=== PATIENT | female | born 1985 | race Caucasian/White ===

== ENCOUNTER 2018-10-11 10:25 | Emergency (ER) | payer MEDICAID ==
[~2018-10-11] VITALS: Ht 160 cm; Wt 81.6 kg
[~2018-10-11 10:25] MED LIST: ALBU0.0912 INH
--- NOTE | 2018-10-11 10:27 | NUR ---
PATIENT BIB [facility] FIRE TO BED 1 AT THIS TIME.
[2018-10-11 10:33] VITALS: BP 123/85
--- NOTE | 2018-10-11 10:49 | NUR ---
33F BIBA C/O SOB X 1 DAY. USED ALBUTEROL INH (HOME MED) WITHOUT RELIEF. BROUGHT IN BY BLS WHO STATES PT WAS SATURATING 92% RA, RECEIVED ALBUTEROL TX X2, SATURATION INCREASED TO 96% RA. NO S/S ACUTE DISTRESS NOW. INTERMITTENT WHEEZING B/L LUNGS. STATES COUGH, PRODUCTIVE 2 DAYS AGO, MILD CONGESTION. ALSO C/O CONSTANT 5/10 PAIN UNDER LEFT BREAST. PMHX- ASTHMA, COPD MEDS- ALBUTEROL INH ALL- LEVAQUIN
[2018-10-11] MEDS ORDERED: predniSONE 20 MG TAB PO ONE (11:20)
[2018-10-11] MEDS ORDERED: ALBUTEROL 0.083% 2.5 MG/3 ML NEBU INH ONE ×2 (11:20→12:30)
[2018-10-11] MEDS ORDERED: IPRATROPIUM 0.02% 0.5 MG/2.5 ML NEBU INH ONE (11:20)
--- NOTE | 2018-10-11 11:33 | NUR ---
PO MEDS GIVEN-NADR AT THIS TIME. RT AT BEDSIDE HHN TX GIVEN.
--- NOTE | 2018-10-11 11:47 | NUR ---
RT AT BEDSIDE.
--- NOTE | 2018-10-11 11:55 | NUR ---
PT SATURATING 94-95% RA NOW. NO S/S RESPIRATORY DISTRESS.
--- NOTE | 2018-10-11 13:22 | NUR ---
Patient discharged with v/s stable. Written and verbal after care instructions given and explained. Patient alert, oriented and verbalized understanding of instructions. Ambulatory with steady gait. All questions addressed prior to discharge. ID band removed. Patient advised to follow up with PMD.NO Rx PROAIR HFA, PREDNISONE given. Patient educated on indication of medication including possible reaction and side effects. Opportunity to ask questions provided and answered.
[2018-10-11 13:34] VITALS: BP 120/59
== END 2018-10-11 13:22 | disposition home or self-care (01) ==
LOC: MED 10:25
DX: J45.901 Unspecified asthma with (acute) exacerbation (principal); F17.200 Nicotine dependence, unspecified, uncomplicated; I10 Essential (primary) hypertension; Z98.890 Other specified postprocedural states; Z79.899 Other long term (current) drug therapy; Z88.1 Allergy status to other antibiotic agents
CPT/HCPCS: 81025; 94640; 94760; 99284; J7512; J7613; J7644

== ENCOUNTER 2018-10-22 19:53 | Inpatient (IN) | payer MEDICAID ==
[~2018-10-22] VITALS: Ht 157.5 cm; Wt 83.9 kg
[2018-10-22] MEDS: NACL 0.9% 1,000 ML IV SCH (01:20)
[2018-10-22 20:10] VITALS: BP 138/73
[2018-10-22] MEDS ORDERED: MAG SULF 2000 MG/WATER PREMIX 50 ML IV ONE (20:24)
[2018-10-22] MEDS ORDERED: NACL 0.9% 1,000 ML IV ONE (20:24)
[2018-10-22] MEDS ORDERED: methylPREDNISolone SS 125 MG in WATER STERILE 2 ML IV ONE (20:24)
[2018-10-22] MEDS ORDERED: ALBUTEROL 0.083% 2.5 MG/3 ML NEBU INH ONE (20:24)
[2018-10-22] MEDS ORDERED: AZITHROMYCIN 500 MG in DEXTROSE 5% 250 ML IV ONE (22:10)
[2018-10-22] MEDS ORDERED: NACL 0.9% 1,600 ML IV ONE (22:10)
[2018-10-22] MEDS ORDERED: cefTRIAXone 1,000 MG VIAL ONE (22:26)
[2018-10-22] MEDS ORDERED: HYDROcodone/APAP 7.5/325 MG 1 TAB PO PRN (23:00)
[2018-10-22] MEDS ORDERED: FAMOTIDINE 20 MG/2 ML VIAL IV PRN (23:00)
[2018-10-22] MEDS ORDERED: ACETAMINOPHEN 325 MG TAB PO PRN (23:00)
[2018-10-22] MEDS ORDERED: LORazepam 2 MG/ML VIAL IM/IVP PRN (23:00)
[2018-10-22] MEDS ORDERED: DOCUSATE SODIUM 100 MG GELCAP PO PRN (23:00)
[2018-10-22] MEDS ORDERED: ONDANSETRON 4 MG/2 ML VIAL IM/IVP PRN (23:00)
[2018-10-22 23:16] LABS: HEMATOCRIT 40.2 % (36-48); HEMOGLOBIN 13.5 g/dL (12.0-16.0); MEAN CORPUSCULAR HEMOGLOBIN 30 pg (27-31); MEAN CORPUSCULAR HGB CONC 34 g/dL (33-37); MEAN CORPUSCULAR VOLUME 90.3 fL (80-94); PLATELET COUNT (AUTO) 308 K/uL (140-450); RED BLOOD CELL COUNT(AUTO) 4.45 MIL/uL (4.20-5.40); WHITE BLOOD COUNT (AUTO) 15.4 K/uL (4.8-10.8)
[2018-10-22 23:26] LABS: APPEARANCE,URINE CLEAR (CLEAR); BILIRUBIN,URINE NEGATIVE (NEGATIVE); BLOOD, URINE NEGATIVE (NEGATIVE); COLOR,URINE YELLOW (YELLOW); LEUKOCYTE ESTERASE ,URINE 1+ (NEGATIVE); NITRITE, URINE NEGATIVE (NEGATIVE); PH,URINE 6.5 (5.0-9.0); UGLUCOSE NEGATIVE (NEGATIVE)
[2018-10-22 23:31] LABS: BARBITURATE, URINE NEG. ng/ml (NEG <=200); BENZODIAZEPINE, URINE NEG. ng/mL (NEG <=200); CANNABINOID, URINE NEG. ng/mL (NEG <=50); COCAINE, URINE NEG. ng/mL (NEG <=300); OPIATE, URINE NEG. ng/mL (NEG <=2000); PHENCYCLIDINE SCREEN,URINE NEG. ng/mL (NEG <=25)
[2018-10-22 23:35] LABS: EOSINOPHILS % (MANUAL) 3 % (0-4); LYMPHOCYTES % (MANUAL) 4 % (20-46); METAMYELOCYTES % 1 % (0-0); MONOCYTES % (MANUAL) 2 % (5-12)
[2018-10-22 23:36] LABS: RBC,URINE 0-5 /HPF (0-5); TRICHOMONAS,URINE Few /HPF (None Seen)
[2018-10-22] MEDS ORDERED: AZITHROMYCIN 500 MG INJ VIAL IV ONE (23:42)
[2018-10-22 23:44] LABS: AMYLASE 38 U/L (25-115); FREE T4 (FREE THYROXINE) 0.93 ng/dL (0.76-1.46); HDL CHOLESTEROL 45 mg/dL (40-60); LDL (CALC) 70 mg/dL (60-100); LIPASE 131 U/L (73-393); THYROID STIMULATING HORMONE 0.46 uIU/mL (0.34-3.74); TRIGLYCERIDES 112 mg/dL (30-150)
[2018-10-22 23:45] VITALS: BP 127/71
[2018-10-22 23:53] LABS: PROTHROMBIN TIME 10.5 secs (10.8-13.4)
[2018-10-23 00:11] LABS: ANION GAP 15.2 (8-16); CARBON DIOXIDE 22.5 mmol/L (21-32); CREATININE 0.7 mg/dL (0.6-1.3); POTASSIUM 3.7 mmol/L (3.5-5.1); TOTAL BILIRUBIN 0.3 mg/dL (0.0-1.0)
[2018-10-23] MEDS: ALBUTEROL SULFATE/IPRATROPIU 3 ML SOL IH PRN ×3 (01:20→14:19)
[2018-10-23] MEDS ORDERED: ALBUTEROL SULFATE/IPRATROPIU 3 ML SOL IH ONE (01:20)
[2018-10-23] MEDS ORDERED: BUDESONIDE 0.5 MG/2 ML NEBU INH SCH (01:30)
[2018-10-23] MEDS ORDERED: metroNIDAZOLE 500 MG TAB PO SCH (04:00)
[2018-10-23] MEDS ORDERED: SODIUM PHOS / POTASSIUM PHOS 1 PKT PDR PO SCH (04:30)
[2018-10-23] MEDS: methylPREDNISolone SS 125 MG/2 ML VIAL IVP SCH (04:36)
[2018-10-23] MEDS: ALBUTEROL SULFATE/IPRATROPIU 3 ML SOL IH SCH ×4 (06:00→19:37)
[2018-10-23] MEDS: BUDESONIDE 0.5 MG/2 ML NEBU INH SCH ×2 (06:56→19:37)
[2018-10-23 08:50] LABS: HEMATOCRIT 42.4 % (36-48); HEMOGLOBIN 14.3 g/dL (12.0-16.0); MEAN CORPUSCULAR HEMOGLOBIN 31 pg (27-31); MEAN CORPUSCULAR HGB CONC 34 g/dL (33-37); MEAN CORPUSCULAR VOLUME 90.8 fL (80-94); PLATELET COUNT (AUTO) 334 K/uL (140-450); RED BLOOD CELL COUNT(AUTO) 4.67 MIL/uL (4.20-5.40); RED CELL DISTRIBUTION WIDTH 14.7 % (11.6-13.7)
[2018-10-23] MEDS: NACL 0.9% 1,000 ML IV SCH (08:59)
[2018-10-23] MEDS ORDERED: WATER STERILE IM SCH (09:00)
[2018-10-23] MEDS ORDERED: METHYLPREDNISOLONE SS IM SCH (09:00)
[2018-10-23 09:04] VITALS: BP 132/90
[2018-10-23] MEDS: LACTOBACILLUS RHAMNOSUS GG 1 EACH CAP PO SCH ×2 (09:21→21:59)
[2018-10-23 09:36] LABS: BASOPHILS % (MANUAL) 0 % (0-2); EOSINOPHILS % (MANUAL) 0 % (0-4); LYMPHOCYTES % (MANUAL) 4 % (20-46); MONOCYTES % (MANUAL) 3 % (5-12)
[2018-10-23 10:44] LABS: ANION GAP 16.5 (8-16); CARBON DIOXIDE 21.5 mmol/L (21-32); CREATININE 0.8 mg/dL (0.6-1.3)
[2018-10-23 10:48] LABS: MAGNESIUM 1.5 mg/dL (1.8-2.4); PHOSPHORUS 1.8 mg/dL (2.5-4.9)
[2018-10-23 12:47] VITALS: BP 124/63
[2018-10-23] MEDS ORDERED: MAG SULF 2000 MG/WATER PREMIX 50 ML IV SCH (15:00)
[2018-10-23 16:21] VITALS: BP 136/76
[2018-10-23 20:00] VITALS: BP 139/77
[2018-10-23] MEDS: AZITHROMYCIN 250 MG in DEXTROSE 5% 250 ML IV SCH (21:58)
[2018-10-23] MEDS: KETOROLAC 30 MG/ML VIAL IM PRN (22:50)
[2018-10-24] MEDS: NACL 0.9% 1,000 ML IV SCH ×2 (03:48→22:25)
[2018-10-24] MEDS: methylPREDNISolone SS 125 MG/2 ML VIAL IVP SCH (03:48)
[2018-10-24] MEDS: KETOROLAC 30 MG/ML VIAL IM PRN (08:42)
[2018-10-24] MEDS: ASPIRIN 81 MG TAB.CHEW PO SCH (08:42)
[2018-10-24] MEDS: LACTOBACILLUS RHAMNOSUS GG 1 EACH CAP PO SCH ×2 (08:42→21:15)
[2018-10-24] MEDS: BUDESONIDE 0.5 MG/2 ML NEBU INH SCH ×2 (09:28→19:52)
[2018-10-24 10:02] LABS: HEMATOCRIT 39.6 % (36-48); HEMOGLOBIN 13.2 g/dL (12.0-16.0); MEAN CORPUSCULAR HEMOGLOBIN 30 pg (27-31); MEAN CORPUSCULAR HGB CONC 33 g/dL (33-37); MEAN CORPUSCULAR VOLUME 91.5 fL (80-94); PLATELET COUNT (AUTO) 323 K/uL (140-450); RED BLOOD CELL COUNT(AUTO) 4.33 MIL/uL (4.20-5.40); WHITE BLOOD COUNT (AUTO) 24.7 K/uL (4.8-10.8)
[2018-10-24 10:52] LABS: ANION GAP 14.5 (8-16); CARBON DIOXIDE 24.2 mmol/L (21-32); CREATININE 0.7 mg/dL (0.6-1.3); POTASSIUM 3.7 mmol/L (3.5-5.1)
[2018-10-24 10:56] VITALS: BP 137/86
[2018-10-24 10:56] LABS: BASOPHILS % (MANUAL) 0 % (0-2); EOSINOPHILS % (MANUAL) 1 % (0-4); LYMPHOCYTES % (MANUAL) 4 % (20-46); MAGNESIUM 1.1 mg/dL (1.8-2.4); MONOCYTES % (MANUAL) 2 % (5-12); PHOSPHORUS 2.1 mg/dL (2.5-4.9)
[2018-10-24] MEDS: ALBUTEROL SULFATE/IPRATROPIU 3 ML SOL IH SCH ×2 (12:38→18:00)
[2018-10-24 18:06] VITALS: BP 128/82
[2018-10-24 20:00] VITALS: BP 145/85
[2018-10-24] MEDS ORDERED: MAGNESIUM OXIDE 400 MG TAB PO ONE (20:05)
[2018-10-24] MEDS ORDERED: AZITHROMYCIN 250 MG TAB PO SCH (21:00)
[2018-10-24] MEDS: AZITHROMYCIN 250 MG in DEXTROSE 5% 250 ML IV SCH (21:00)
[2018-10-24] MEDS: SODIUM PHOS / POTASSIUM PHOS 1 PKT PDR PO SCH (21:15)
[2018-10-24] MEDS: MAG SULF 2000 MG/WATER PREMIX 50 ML IV SCH ×2 (21:16→21:18)
[2018-10-24] MEDS ORDERED: cefTRIAXone 1,000 MG VIAL IM SCH (22:00)
[2018-10-24] MEDS ORDERED: LIDOCAINE MPF 1% 5mL VIAL INJ SCH (22:00)
[2018-10-24] MEDS ORDERED: LIDOCAINE 1% 500 MG/50 ML VIAL ONE (22:04)
[2018-10-25] VITALS: BP 125/83
[2018-10-25 04:00] VITALS: BP 140/96
[2018-10-25] MEDS: methylPREDNISolone SS 125 MG/2 ML VIAL IVP SCH (04:30)
[2018-10-25] MEDS: ALBUTEROL SULFATE/IPRATROPIU 3 ML SOL IH SCH ×3 (06:17→19:45)
[2018-10-25] MEDS: BUDESONIDE 0.5 MG/2 ML NEBU INH SCH ×2 (06:26→19:45)
[2018-10-25 08:00] VITALS: BP 125/67
[2018-10-25 08:03] LABS: ANION GAP 8.5 (8-16); CARBON DIOXIDE 32.3 mmol/L (21-32); CREATININE 0.6 mg/dL (0.6-1.3); POTASSIUM 3.8 mmol/L (3.5-5.1)
[2018-10-25 08:18] LABS: MAGNESIUM 1.1 mg/dL (1.8-2.4); PHOSPHORUS 3.8 mg/dL (2.5-4.9)
[2018-10-25 08:44] LABS: BASOPHILS # (AUTO) 0.1 K/uL (0.00-0.22); BASOPHILS % (AUTO) 0.3 % (0.0-2.0); EOSINOPHILS % (AUTO) 0.2 % (0.0-4.0); HEMATOCRIT 37.2 % (36-48); HEMOGLOBIN 12.4 g/dL (12.0-16.0); LYMPHOCYTES # (AUTO) 3.2 K/uL (2.5-16.5); LYMPHOCYTES % (AUTO) 17.1 % (20.5-51.1); MEAN CORPUSCULAR HEMOGLOBIN 31 pg (27-31); MEAN CORPUSCULAR HGB CONC 34 g/dL (33-37); MEAN CORPUSCULAR VOLUME 91.8 fL (80-94); MONOCYTES # (AUTO) 1.2 K/uL (0.8-1.0); MONOCYTES % (AUTO) 6.7 % (1.7-9.3); NEUTROPHILS # (AUTO) 14.1 K/uL (1.8-7.7); NEUTROPHILS % (AUTO) 75.7 % (42.2-75.2); PLATELET COUNT (AUTO) 312 K/uL (140-450); RED BLOOD CELL COUNT(AUTO) 4.05 MIL/uL (4.20-5.40); RED CELL DISTRIBUTION WIDTH 14.8 % (11.6-13.7); WHITE BLOOD COUNT (AUTO) 18.6 K/uL (4.8-10.8)
[2018-10-25] MEDS: ASPIRIN 81 MG TAB.CHEW PO SCH (09:22)
[2018-10-25] MEDS: LACTOBACILLUS RHAMNOSUS GG 1 EACH CAP PO SCH ×2 (09:22→21:37)
[2018-10-25] MEDS: SODIUM PHOS / POTASSIUM PHOS 1 PKT PDR PO SCH ×2 (09:23→21:37)
[2018-10-25] MEDS: metroNIDAZOLE 500 MG TAB PO SCH ×2 (09:23→21:36)
[2018-10-25] MEDS ORDERED: cefTRIAXone 1,000 MG in LIDOCAINE MPF 1% - 5 mL VIAL 2.1 ML IM SCH (10:00)
[2018-10-25] MEDS ORDERED: MAG SULF 2000 MG/WATER PREMIX 100 ML IV SCH (10:15)
[2018-10-25] MEDS: ALBUTEROL SULFATE/IPRATROPIU 3 ML SOL IH PRN (15:31)
[2018-10-25] MEDS: BENZONATATE 100 MG CAPLF PO PRN ×2 (16:35→23:04)
[2018-10-25 20:00] VITALS: BP 131/70
[2018-10-25] MEDS: NACL 0.9% 1,000 ML IV SCH (20:03)
[2018-10-25] MEDS: AZITHROMYCIN 250 MG in DEXTROSE 5% 250 ML IV SCH (22:27)
[2018-10-26] MEDS: methylPREDNISolone SS 125 MG/2 ML VIAL IVP SCH (05:15)
[2018-10-26] MEDS: ALBUTEROL SULFATE/IPRATROPIU 3 ML SOL IH SCH ×3 (07:00→19:32)
[2018-10-26] MEDS: BUDESONIDE 0.5 MG/2 ML NEBU INH SCH ×2 (07:00→19:32)
[2018-10-26 07:33] LABS: BASOPHILS # (AUTO) 0.1 K/uL (0.00-0.22); BASOPHILS % (AUTO) 0.4 % (0.0-2.0); EOSINOPHILS # (AUTO) 0.6 K/uL (0-0.4); EOSINOPHILS % (AUTO) 4.4 % (0.0-4.0); HEMATOCRIT 40.2 % (36-48); HEMOGLOBIN 13.3 g/dL (12.0-16.0); LYMPHOCYTES # (AUTO) 2.6 K/uL (2.5-16.5); LYMPHOCYTES % (AUTO) 18.5 % (20.5-51.1); MEAN CORPUSCULAR HEMOGLOBIN 30 pg (27-31); MEAN CORPUSCULAR HGB CONC 33 g/dL (33-37); MEAN CORPUSCULAR VOLUME 91.8 fL (80-94); MONOCYTES # (AUTO) 1.2 K/uL (0.8-1.0); MONOCYTES % (AUTO) 8.4 % (1.7-9.3); NEUTROPHILS # (AUTO) 9.6 K/uL (1.8-7.7); NEUTROPHILS % (AUTO) 68.3 % (42.2-75.2); PLATELET COUNT (AUTO) 310 K/uL (140-450); RED BLOOD CELL COUNT(AUTO) 4.38 MIL/uL (4.20-5.40); RED CELL DISTRIBUTION WIDTH 14.8 % (11.6-13.7)
[2018-10-26 07:38] LABS: ANION GAP 9.3 (8-16); CARBON DIOXIDE 30.6 mmol/L (21-32); CREATININE 0.6 mg/dL (0.6-1.3); POTASSIUM 3.9 mmol/L (3.5-5.1)
[2018-10-26] MEDS: BENZONATATE 100 MG CAPLF PO PRN (07:42)
[2018-10-26 07:46] LABS: MAGNESIUM 1.3 mg/dL (1.8-2.4); PHOSPHORUS 3.5 mg/dL (2.5-4.9)
[2018-10-26 08:00] VITALS: BP 100/55
[2018-10-26] MEDS: ALBUTEROL SULFATE/IPRATROPIU 3 ML SOL IH PRN ×2 (08:12→17:44)
[2018-10-26] MEDS ORDERED: MAGNESIUM OXIDE 400 MG TAB PO SCH (09:00)
[2018-10-26] MEDS ORDERED: MAG SULF 2000 MG/WATER PREMIX 100 ML IV SCH (09:00)
[2018-10-26] MEDS: ASPIRIN 81 MG TAB.CHEW PO SCH (09:44)
[2018-10-26] MEDS: LACTOBACILLUS RHAMNOSUS GG 1 EACH CAP PO SCH ×2 (09:44→20:26)
[2018-10-26] MEDS: NACL 0.9% 1,000 ML IV SCH (20:03)
[2018-10-26] MEDS: AZITHROMYCIN 250 MG in DEXTROSE 5% 250 ML IV SCH (20:26)
[2018-10-27] MEDS: methylPREDNISolone SS 125 MG/2 ML VIAL IVP SCH (04:45)
[2018-10-27] MEDS: ALBUTEROL SULFATE/IPRATROPIU 3 ML SOL IH SCH (05:41)
[2018-10-27 07:03] LABS: HEMATOCRIT 41.8 % (36-48); MEAN CORPUSCULAR HEMOGLOBIN 31 pg (27-31); MEAN CORPUSCULAR HGB CONC 34 g/dL (33-37); MEAN CORPUSCULAR VOLUME 91.3 fL (80-94); PLATELET COUNT (AUTO) 312 K/uL (140-450); RED BLOOD CELL COUNT(AUTO) 4.57 MIL/uL (4.20-5.40); RED CELL DISTRIBUTION WIDTH 14.7 % (11.6-13.7)
[2018-10-27 07:22] LABS: WHITE BLOOD COUNT (AUTO) 22.4 K/uL (4.8-10.8)
[2018-10-27 07:30] LABS: ANION GAP 13.9 (8-16); CARBON DIOXIDE 26.7 mmol/L (21-32); CREATININE 0.7 mg/dL (0.6-1.3); POTASSIUM 3.6 mmol/L (3.5-5.1)
[2018-10-27 07:43] LABS: MAGNESIUM 1.5 mg/dL (1.8-2.4); PHOSPHORUS 3.5 mg/dL (2.5-4.9)
[2018-10-27] MEDS: BUDESONIDE 0.5 MG/2 ML NEBU INH SCH (07:53)
[2018-10-27] MEDS: ALBUTEROL SULFATE/IPRATROPIU 3 ML SOL IH PRN (07:53)
[2018-10-27 08:00] VITALS: BP 132/83
[2018-10-27] MEDS ORDERED: diphenhydrAMINE 50 MG/ML VIAL IVP SCH (08:25)
[2018-10-27] MEDS ORDERED: MAGNESIUM OXIDE 400 MG TAB PO SCH (08:27)
[2018-10-27] MEDS ORDERED: MAG SULF 2000 MG/WATER PREMIX 100 ML IV SCH (09:00)
[2018-10-27 09:11] LABS: METAMYELOCYTES % 1 % (0-0); MYELOCYTES % 1 % (0-0)
[2018-10-27 09:12] LABS: EOSINOPHILS % (MANUAL) 1 % (0-4); LYMPHOCYTES % (MANUAL) 15 % (20-46); MONOCYTES % (MANUAL) 5 % (5-12)
[2018-10-27] MEDS ORDERED: ALBU-118 IH (09:14)
[2018-10-27] MEDS ORDERED: AZIT250T3 PO (09:16)
[2018-10-27] MEDS ORDERED: AMOX-999 PO (09:16)
[2018-10-27] MEDS ORDERED: INUL1CTB PO (09:16)
[2018-10-27] MEDS ORDERED: METH4TAB3 PO (09:19)
[2018-10-27] MEDS ORDERED: LORazepam 2 MG/ML VIAL IVP SCH (09:19)
[2018-10-27] MEDS: BENZONATATE 100 MG CAPLF PO PRN (09:24)
[2018-10-27] MEDS: ASPIRIN 81 MG TAB.CHEW PO SCH (09:26)
[2018-10-27] MEDS: LACTOBACILLUS RHAMNOSUS GG 1 EACH CAP PO SCH (09:26)
[2018-10-27] MEDS ORDERED: MAGN200T12 PO (10:15)
[2018-10-27 15:21] LABS: CHLAMYDIA TRACHOMATIS AMP DNA Negative (Negative)
== END 2018-10-27 13:20 | disposition home or self-care (01) | DRG 140 ==
LOC: MED 19:53 → MTU 22:59
PROVIDERS: ADMIT General Practice; ATTEND General Practice
PROC: 02HV33Z Insertion of Infusion Device into Superior Vena Cava, Percutaneous Approach (ICD-10-PCS; principal; 2018-10-25)
PROC: B548ZZA Ultrasonography of Superior Vena Cava, Guidance (ICD-10-PCS; 2018-10-25)
DX: J44.0 Chronic obstructive pulmonary disease with (acute) lower respiratory infection (principal); J96.01 Acute respiratory failure with hypoxia; J18.9 Pneumonia, unspecified organism; E44.0 Moderate protein-calorie malnutrition; J45.901 Unspecified asthma with (acute) exacerbation; E83.39 Other disorders of phosphorus metabolism; E83.42 Hypomagnesemia; E83.51 Hypocalcemia; J44.1 Chronic obstructive pulmonary disease with (acute) exacerbation; F17.210 Nicotine dependence, cigarettes, uncomplicated; I10 Essential (primary) hypertension; F19.10 Other psychoactive substance abuse, uncomplicated; F12.90 Cannabis use, unspecified, uncomplicated; A59.01 Trichomonal vulvovaginitis; N39.0 Urinary tract infection, site not specified; Z68.33 Body mass index [BMI] 33.0-33.9, adult; Z98.51 Tubal ligation status; Z88.1 Allergy status to other antibiotic agents; Z91.14 Patient's other noncompliance with medication regimen
CPT/HCPCS: 36415; 36600; 71045; 80048; 80053; 80305; 81001; 81025; 82040; 82140; 82150; 82803; 82948; 83036; 83605; 83690; 83735; 83880; 84100; 84439; 84443; 84484; 85025; 85379; 85610; 85730; 87081; 87086; 87205; 87491; 92610; 93005; 93970; 94640; 99285; C1751; G0482; J0456; J0696; J1200; J1644; J1885; J2001; J2060; J2930; J3475; J7030; J7060; J7613; J7620; J7626; Q0092

== ENCOUNTER 2018-11-15 10:40 | Outpatient (CLI) | payer MEDICAID ==
[~2018-11-15 10:40] MED LIST changes: +ALBU-118 IH; +AMOX-999 PO; +AZIT250T3 PO; +INUL1CTB PO; +MAGN200T12 PO; +METH4TAB3 PO
== END 2018-11-15 20:11 | disposition home or self-care (01) ==
LOC: MRD 10:40
DX: J35.02 Chronic adenoiditis (principal)
CPT/HCPCS: 70360

== ENCOUNTER 2018-12-09 20:58 | Inpatient (IN) | payer MEDICAID ==
[~2018-12-09] VITALS: Ht 157.5 cm; Wt 93.0 kg
[2018-12-09] VITALS: BP 124/73
[2018-12-09 20:58] VITALS: BP 154/100
--- NOTE | 2018-12-09 21:00 | NUR ---
33 Y/O FEMALE BIB FIRE SQUAD #183 FROM HOME. REPORT RECEIVED FROM DATA WAREHOUSING SPECIALIST, STATES RECEIVING A CALL FROM PT COMPLAINING OF SOB. RECEIVED ALUBETEROL TREATMENT ON SCENE. ENROUTE TO ED, PT PLACED ON CPAP AND RECEIVED 0.5MG EPI. PT C/O TIGHTENING OF THROAT. HX OF ASTHMA, COPD, AND HTN. 20G IV ON RIGHT HAND PLACED BY PARAMEDICS. PT DENIES ANY CHEST PAIN. ERMD AWARE. WILL CONTINUE TO MONITOR.
[2018-12-09] MEDS ORDERED: ALBUTEROL 0.083% 2.5 MG/3 ML NEBU INH ONE ×2 (21:07→21:10)
[2018-12-09] MEDS ORDERED: methylPREDNISolone SS 125 MG/2 ML VIAL IVP ONE (21:10)
--- NOTE | 2018-12-09 21:16 | NUR ---
XRAY AT BEDSIDE
[2018-12-09 21:46] LABS: BASOPHILS # (AUTO) 0.1 K/uL (0.00-0.22); BASOPHILS % (AUTO) 1.2 % (0.0-2.0); EOSINOPHILS # (AUTO) 1.3 K/uL (0-0.4); EOSINOPHILS % (AUTO) 11.7 % (0.0-4.0); HEMATOCRIT 42.9 % (36-48); HEMOGLOBIN 14.2 g/dL (12.0-16.0); LYMPHOCYTES # (AUTO) 2.8 K/uL (2.5-16.5); LYMPHOCYTES % (AUTO) 25.5 % (20.5-51.1); MEAN CORPUSCULAR HEMOGLOBIN 30 pg (27-31); MEAN CORPUSCULAR HGB CONC 33 g/dL (33-37); MEAN CORPUSCULAR VOLUME 91.4 fL (80-94); MONOCYTES # (AUTO) 0.6 K/uL (0.8-1.0); MONOCYTES % (AUTO) 5.3 % (1.7-9.3); NEUTROPHILS # (AUTO) 6.2 K/uL (1.8-7.7); NEUTROPHILS % (AUTO) 56.3 % (42.2-75.2); PLATELET COUNT (AUTO) 432 K/uL (140-450); RED CELL DISTRIBUTION WIDTH 13.3 % (11.6-13.7)
--- NOTE | 2018-12-09 21:48 | NUR ---
PT OFF CONTINUOUS TX. MD WALLACE AT BEDSIDE. PT SAID SHE FEELS BETTER. PLACED PT ON 4 L NC. WILL CONTINUE TO MONITOR.
[2018-12-09] MEDS ORDERED: AZITHROMYCIN 500 MG in DEXTROSE 5% 250 ML IV ONE (22:00)
[2018-12-09 22:08] LABS: ANION GAP 12.2 (8-16); CARBON DIOXIDE 25.4 mmol/L (21-32); CREATININE 0.8 mg/dL (0.6-1.3); POTASSIUM 3.6 mmol/L (3.5-5.1)
[2018-12-09 22:13] LABS: ALBUMIN 3.5 g/dL (3.4-5.0); TOTAL BILIRUBIN 0.2 mg/dL (0.0-1.0)
[2018-12-09] MEDS ORDERED: AZITHROMYCIN 500 MG INJ VIAL IV ONE (22:15)
[2018-12-09] MEDS ORDERED: ONDANSETRON 4 MG/2 ML VIAL IVP PRN (22:15)
[2018-12-09] MEDS ORDERED: ACETAMINOPHEN 325 MG TAB PO PRN (22:15)
[2018-12-09] MEDS ORDERED: HYDROcodone/APAP 7.5/325 MG 1 TAB PO PRN (22:15)
--- NOTE | 2018-12-09 22:45 | NUR ---
Patient arrived in unit via ralbia, accompanied by two WILLOW WORKER's. Patient able to ambulate from gurney to bed without assistance; introduced self, updated board. Chief complaint of SOB for 1 day, diagnosis is Asthma exacerbation. No SOB or distress noted, on room air. IV site on right hand, 20 gauge, running IVF at 250mL/hr. Skin intact. Bed in the lowest position, call light within reach. Initial assessment done. Will continue to monitor.
[2018-12-09] MEDS ORDERED: FLUT1DSK2 IH (22:47)
[2018-12-09] MEDS ORDERED: AZITHROMYCIN 500 MG in DEXTROSE 5% 250 ML IV SCH (22:50)
[2018-12-09] MEDS ORDERED: MONTELUKAST SODIUM 10 MG TAB PO SCH (22:50)
--- NOTE | 2018-12-09 22:50 | NUR ---
PT ADMITTED TO TELE RM 107A. TRANSFERRED PT VIA [facility] WITH BALJINDER ALBRECHT, PT STABLE. REPORT GIVEN TO ADRIEN GARVEY. PT CARE TRANSFERRED TO RECEIVING RN.
[2018-12-09 23:17] LABS: MAGNESIUM 1.2 mg/dL (1.8-2.4)
[2018-12-10] VITALS: BP 124/73
--- NOTE | 2018-12-10 00:01 | NUR ---
Vitals taken, no distress noted.
[2018-12-10 00:13] LABS: FREE T4 (FREE THYROXINE) 0.84 ng/dL (0.76-1.46); PHOSPHORUS 4.2 mg/dL (2.5-4.9); THYROID STIMULATING HORMONE 2.75 uIU/mL (0.34-3.74)
[2018-12-10] MEDS ORDERED: MAG SULF 2000 MG/WATER PREMIX 100 ML IV ONE (01:00)
[2018-12-10] MEDS ORDERED: VARE1TAB PO (01:00)
--- NOTE | 2018-12-10 01:10 | NUR ---
PT REFUSED ABG. MD MIDDLETON AWARE.
[2018-12-10] MEDS ORDERED: cefTRIAXone 1,000 MG VIAL ONE (01:32)
--- NOTE | 2018-12-10 01:53 | NUR ---
Found patient IV dislodged when about to give IV Rocephin and IV Magnesium sulfate. Patient refused IV reinsertion; stated PICC line will be inserted this morning. Will notify Dr. Baeza about discovery.
[2018-12-10 02:45] LABS: CREATINE KINASE MB 1.1 ng/mL (0-3.6)
[2018-12-10 04:00] VITALS: BP 121/70
--- NOTE | 2018-12-10 04:40 | NUR ---
Vitals taken, no distress noted.
[2018-12-10] MEDS: methylPREDNISolone SS 125 MG/2 ML VIAL IVP SCH ×3 (05:00→21:47)
--- NOTE | 2018-12-10 06:10 | NUR ---
Vitals taken, due meds given. Will endorse to AM shift RN for continuity of care.
--- NOTE | 2018-12-10 07:37 | NUR ---
PT EATING AT THIS TIME WILL ADMINISTER BREATHING TX AT A LATER TIME. PT NOT IN ANY DISTRESS AT THIS TIME. WILL CONTINUE TO MONITOR.
[2018-12-10 07:44] VITALS: BP 126/71
[2018-12-10] MEDS: ALBUTEROL SULFATE/IPRATROPIU 3 ML SOL IH SCH ×3 (08:07→18:59)
--- NOTE | 2018-12-10 08:08 | NUR ---
PATIENT HAS BEEN SCREENED AND CATEGORIZED LOW NUTRITION RISK. PATIENT WILL BE SEEN WITHIN 7 DAYS OF ADMISSION. 12/16/[address]
[2018-12-10] MEDS: MAGNESIUM OXIDE 400 MG TAB PO SCH (08:35)
[2018-12-10] MEDS: LACTOBACILLUS RHAMNOSUS GG 1 EACH CAP PO SCH (08:35)
[2018-12-10] MEDS: FAMOTIDINE 20 MG TAB PO SCH ×2 (08:35→21:46)
[2018-12-10] MEDS: DOCUSATE SODIUM 100 MG GELCAP PO SCH ×2 (08:36→21:46)
[2018-12-10] MEDS: NICOTINE TRANSD SYS 7 MG/24 HR PATCH TD SCH (08:40)
[2018-12-10] MEDS: BENZONATATE 100 MG CAPLF PO PRN ×2 (08:47→21:52)
--- NOTE | 2018-12-10 08:51 | NUR ---
GAVE PT TESSALON PRN PER MD ORDER. PT STATES THAT SHE COUGHS WHEN SHE LAYS DOWN.
[2018-12-10] MEDS ORDERED: NON-FORMULARY ITEM (Varenicline Tartrate (Chantix) 1 TAB) PO SCH (09:00)
--- NOTE | 2018-12-10 10:00 | NUR ---
PICC LINE INSERTED BY PICC LINE MARE MUJICA IN RIGHT UPPER ARM. FLUSHES WELL, GOOD BLOOD RETURN. JAGDEEP MOURA PER MD ORDER. WILL CONTINUE TO MONITOR.
[2018-12-10] MEDS ORDERED: MAG SULF 2000 MG/WATER PREMIX 50 ML IV SCH (12:00)
[2018-12-10 12:39] VITALS: BP 117/62
--- NOTE | 2018-12-10 12:50 | NUR ---
PT COMPLAINS OF 10/10 CRAMPING OF RIGHT LEG. TOOK OUT NORCO BUT PT REFUSED TO TAKE NARCOTICS.
[2018-12-10] MEDS ORDERED: MAG SULF 2000 MG/WATER PREMIX 100 ML IV SCH (14:15)
[2018-12-10] MEDS: MONTELUKAST SODIUM 10 MG TAB PO SCH (16:26)
[2018-12-10 17:19] VITALS: BP 132/73
--- NOTE | 2018-12-10 19:12 | NUR ---
GAVE BED SIDE REPORT TO MARKET DEVELOPMENT DIRECTOR RN. PT STABLE.
--- NOTE | 2018-12-10 19:13 | NUR ---
Received endorsement from AM shift RN; patient A/Ox4, able to make needs known, ambulatory. Patient watching TV; introduced self, updated board. No SOB or distress noted, on O2 2LPM via nasal cannula. IV site on right upper arm PICC line, double lumen, saline locked. Skin intact. Bed in the lowest position, call light within reach. Initial assessment done. Will continue to monitor.
[2018-12-10 20:00] VITALS: BP 121/71
--- NOTE | 2018-12-10 21:35 | NUR ---
Patient changed to room 112A.
--- NOTE | 2018-12-10 21:50 | NUR ---
Due meds given, tolerated well.
[2018-12-10] MEDS: AZITHROMYCIN 500 MG in DEXTROSE 5% 250 ML IV SCH (23:20)
[2018-12-10] MEDS: ALBUTEROL SULFATE/IPRATROPIU 3 ML SOL IH PRN (23:28)
[2018-12-11] VITALS: BP 125/68
--- NOTE | 2018-12-11 00:15 | NUR ---
Vitals taken, no distress noted.
--- NOTE | 2018-12-11 01:02 | NUR ---
PATIENT PLACED ON CPAP MACHINE AT 5 CM AND FIO2 30%. PATIENTS SATS ARE 97%. NO SOB NOTED
--- NOTE | 2018-12-11 02:00 | NUR ---
PATIENT STABLE AND ALERT SP02 98 HR 88. PATIENT DID NOT WANT TO WEAR CPAP AND TOOK OFF THE MASK. PATIENT STATED SHE DID NOT FEEL COMFORTABLE WEARING THE CPAP AND WANTED TO SLEEP WITHOUT THE MACHINE AT THIS TIMETTTHISTEEDEDEDEDEDEDEDEDEDEDEDEDEDEDEDEDEDEDEDEDEDEDEDEDEDEDEDEDEDEDEDEDEDEDEDEDEDEDEDED EDEDEDEDEDEDEDEDEDEDEDEDEDEDEDEDEDEDEDEDEDEDEDEDEDEDEDEDEFFFFFFFFFFFFFFFFFFFFFFFFFFFFFFFFFFF FFFFFFFFFFFFFFFFFFFFFFFFFFFFFFFFFFFFFFFFFFFFFFFFFFFFFFFFFFFFFFFFFFFFFFFFFFFFFFFFFFFFFFFFFFFF FFFFFFFFFFFFFFFFFFFFFFFFFFFFFFFFFFFFFFFFFFFFFFFFFFFFFFFFFFFFFFFFFFFFFFFFFFFFFFFFFFFFFFFFFFFF FFFFFFFFFFFFFFFFFFFFFFFFFFFFFFFFFFFFFFFFFFFFFFFFFFFFFFFFFFFFFFFFFFFFFFFFFFFFFFFFFFFFFFFFFFFF FFFFFFFFFFFFFFFFFFFFFFFFFFFFFFFFFFFFFFFFFFFFFFFFFFFFFFFFFFFFFFFFFFFFFFFFFFFFFFFFFFFFFFFFFFFF FFFFFFFFFFFFFFFFFFFFFFFFFFFFFFFFFFFFFFFFFFFFFFFFFFFFFFFFFFFFFFFFFFFFFFFFFFFFFFFFFFFFFFFFFFFF FFFFFFFFFFFFFFFFFFFFFFFFFFFFFFFFFFFFFFFFFFFFFFFFFFFFFFFFFFFFFFFFFFFFFFFFFFFFFFFFFFFFFFFFFFFF FFFFFFFFFFFFFFFFFFFFFFFFFFFFFFFFFFFFFFFFFFFFFFFFFFFFFFFFFFFFFFFFFFFFFFFFFFFFFFFFFFFFFFFFFFFF FFFFFFFFFFFFFFFFFFFFFFFFFFFFFFFFFFFFFFFFFFFFFFFFFFFFFFFFFFFFFFFFFFFFFFFFFFFFFFFFFFFFFFFFFFFF FFFFFFFFFFFFFFFFFFFFFFFFFFFFFFFFFFFFFFFFFFFFFFFFFFFFFFFFFFFFFFFFFFFFFFFFFFFFFFFFFFFFFFFFFFFF FFFFFFFFFFFFFFFFFFFFFFFFFFFFFFFFFFFFFFFFFFFFFFFFFFFFFFFFFFFFFFFFFFFFFFFFFFFFFFFFFFFFFFFFFFFF FFFFFFFFFFFFFFFFFFFFFFFFFFFFFFFFFFFFFFFFFFFFFFFFFFFFFFFFFFFFFFFFFFFFFFFFFFFFFFFFFFFFFFFFFFFF FFFFFFFFFFFFFFFFFFFFFFFFFFFFFFFFFFFFFFFFFFFFFFFFFFFFFFFFFFFFFFFFFFFFFFFFFFFFFFFFFFFFFFFFFFFF FFFFFFFFFFFFFFFFFFFFFFFFFFFFFFFFFFFFFFFFFFFFFFFFFFFFFFFFFFFFFFFFFFFFFFFFFFFFFFFFFFFFFFFFFFFF FFFFFFFFFFFFFFFFFFFFFFFFFFFFFFFFFFFFFFFFFFFFFFFFFFFFFFFFFFFFFFFFFFFFFFFFFFFFFFFFFFFFFFFFFFFF FFFFFFFFFFFFFFFFFFFFFFFFFFFFFFFFFFFFFFFFFFFFFFFFFFFFFFFFFFFFFFFFFFFFFFFFFFFFFFFFFFFFFFFFFFFF FFFFFFFFFFFFFFFFFFFFFFFFFFFFFFFFFFFFFFFFFFFFFFFFFFFFFFFFFFFFFFFFFFFFFFFFFFFFFFFFFFFFFFFFFFFF FFFFFFFFFFFFFFFFFFFFFFFFFFFFFFFFFFFFFFFFFFFFFFFFFFFFFFFFFFFFFFFFFFFFFFFFFFFFFFFFFFFFFFFFFFFF FFFFFFFFFFFFFFFFFFFFFFFFFFFFFFFFFFFFFFFFFFFFFFFFFFFFFFFFFFFFFFFFFFFFFFFFFFFFFFFFFFFFFFFFFFFF FFFFFFFFFFFFFFFFFFFFFFFFFFFFFFFFFFFFFFFFFFFFFFFFFFFFFFFFFFFFFFFFFFFFFFFFFFFFFFFFFFFFFFFFFFFF FFFFFFFFFFFFFFFFFFFFFFFFFFFFFFFFFFFFFFFFFFFFFFFFFFFFFFFFFFFFFFFFFFFFFFFFFFFFFFFFFFFFFFFFFFFF FFFFFFFFFFFFFFFFFFFFFFFFFFFFFFFFFFFFFFFFFFFFFFFFFFFFFFFFFFFFFFFFFFFFFFFFFFFFFFFFFFFFFFFFFFFF FFFFFFFFFFFFFFFFFFFFFFFFFFFFFFFFFFFFFFFFFFFFFFFFFFFFFFFFFFFFFFFFFFFFFFFFFFFFFFFFFFFFFFFFFFFF FFFFFFFFFFFFFFFFFFFFFFFFFFFFFFFFFFFFFFFFFFFFFFFFFFFFFFFFFFFFFFFFFFFFFFFFFFFFFFFFFFFFFFFFFFFF FFFFFFFFFFFFFFFFFFFFFFFFFFFFFFFFFFFFFFFFFFFFFFFFFFFFFFFFFFFFFFFFFFFFFFFFFFFFFFFFFFFFFFFFFFFF FFFFFFFFFFFFFFFFFFFFFFFFFFFFFFFFFFFFFFFFFFFFFFFFFFFFFFFFFFFFFFFFFFFFFFFFFFFFFFFFFFFFFFFFFFFF FFFFFFFFFFFFFFFFFFFFFFFFFFFFFFFFFFFFFFFFFFFFFFFFFFFFFFFFFFFFFFFFFFFFFFFFFFFFFFFFFFFFFFFFFFFF FFFFFFFFFFFFFFFFFFFFFFFFFFFFFFFFFFFFFFFFFFFFFFFFFFFFFFFFFFFFFFFFFFFFFFFFFFFFFFFFFFFFFFFFFFFF FFFFFFFFFFFFFFFFFFFFFFFFFFFFFFFFFFFFFFFFFFFFFFFFFFFFFFFFFFFFFFFFFFFFFFFFFFFFFFFFFFFFFFFFFFFF FFFFFFFFFFFFFFFFFFFFFFFFFFFFFFFFFFFFFFFFFFFFFFFFFFFFFFFFFFFFFFFFDDDDDDDDDDDDDDDDDDDDDDDDDDDD DDDDDDDDDDDDDDDDDDDDDDDDDDDDDDDDDDDDDDDDDDDDDDDDDDDDDDDDDDDDDDDDDDDDDDDDDDDDDDDDDDDDDDDDDDDD DDDDDDDDDDDDDDDDDDDDDDDDDDDDDDDDDDDDDDDDDDDDDDDDDDDDDDDDDDDDDDDDDDDDDDDDDDDDDDDDDDDDDDDDDDDD DDDDDDDDDDDDDDDDDDDDDDDDDDDDDDDDDDDDDDDDDDDDDDDDDDDDDDDDDDDDDDDDDDDDDDDDDDDDDDDDDDDDDDDDDDDD DDDDDDDDDDDDDDDDDDDDDDDDDDDDDDDDDDDDDDDDDDDDDDDDDDDDDDDDDDDDDDDDDDDDDDDDDDDDDDDDDDDDDDDDDDDD DDDDDDDDDDDDDDDDDDDDDDDDDDDDDDDDDDDDDDDDDDDDDDDDDDDDDDDDDDDDDDDDDDDDDDDDDDDDDDDDDDDDDDDDDDDD DDDDDDDDDDDDDDDDDDDDDDDDDDDDDDDDDDDDDDDDDDDDDDDDDDDDDDDDDDDDDDDDDDDDDDDDDDDDDDDDDDDDDDDDDDDD DDDDDDDDDDDDDDDDDDDDDDDDDDDDDDDDDDDDDDDDDDDDDDDDDDDDDDDDDDDDDDDDDDDDDDDDDDDDDDDDDDDDDDDDDDDD DDDDDDDDDDDDDDDDDDDDDDDDDDDDDDDDDDDDDDDDDDDDDDDDDDDDDDDDDDDDDDDDDDDDDDDDDDDDDDDDDDDDDDDDDDDD DDDDDDDDDDDDDDDDDDDDDDDDDDDDDDDDDDDDDDDDDDDDDDDDDDDDDDDDDDDDDDDDDDDDDDDDDDDDDDDDDDDDDDDDDDDD DDDDDDDDDDDDDDDDDDDDDDDDDDDDDDDDDDDDDDDDDDDDDDDDDDDDDDDDDDDDDDDDDDDDDDDDDDDDDDDDDDDDDDDDDDDD DDDDDDDDDDDDDDDDDDDDDDDDDDDDDDDDDDDDDDDDDDDDDDDDDDDDDDDDDDDDDDDDDDDDDDDDDDDDDDDDDDDDDDDDDDDD DDDDDDDDDDDDDDDDDDDDDDDDDDDDDDDDDDDDDDDDDDDDDDDDDDDDDDDDDDDDDDDDDDDDDDDDDDDDDDDDDDDDDDDDDDDD DDDDDDDDDDDDDDDDDDDDDDDDDDDDDDDDDDDDDDDDDDDDDDDDDDDDDDDDDDDDDDDDDDDDDDDDDDDDDDDDDDDDDDDDDDDD DDDDDDDDDDDDDDDDDDDDDDDDDDDDDDDDDDDDDDDDDDDDDDDDDDDDDDDDDDDDDDDDDDDDDDDDDDDDDDDDDDDDDDDDDDDD DDDDDDDDDDDDDDDDDDDDDDDDDDDDDDDDDDDDDDDDDDDDDDDDDDDDDDDDDDDDDDDDDDDDDDDDDDDDDDDDDDDDDDDDDDDD DDDDDDDDDDDDDDDDDDDDDDDDDDDDDDDDDDDDDDDDDDDDDDDDDDDDDDDDDDDDDDDDDDDDDDDDDDDDDDDDDDDDDDDDDDDD DDDDDDDDDDDDDDDDDDDDDDDDDDDDDDDDDDDDDDDDDDDDDDDDDDDDDDDDDDDDDDDDDDDDDDDDDDDDDDDDDDDDDDDDDDDD DDDDDDDDDDDDDDDDDDDDDDDDDDDDDDDDDDDDDDDDDDDDDDDDDDDDDDDDDDDDDDDDDDDDDDDDDDDDDDDDDDDDDDDDDDDD DDDDDDDDDDDDDDDDDDDDDDDDDDDDDDDDDDDDDDDDDDDDDDDDDDDDDDDDDDDDDDDDDDDDDDDDDDDDDDDDDDDDDDDDDDDD DDDDDDDDDDDDDDDDDDDDDDDDDDDDDDDDDDDDDDDDDDDDDDDDDDDDDDDDDDDDDDDDDDDDDDDDDDDDDDDDDDDDDDDDDDDD DDDDDDDDDDDDDDDDDDDDDDDDDDDDDDDDDDDDDDDDDDDDDDDDDDDDDDDDDDDDDDDDDDDDDDDDDDDDDDDDDDDDDDDDDDDD DDDDDDDDDDDDDDDDDDDDDDDDDDDDDDDDDDDDDDDDDDDDDDDDDDDDDDDDDDDDDDDDDDDDDDDDDDDDDDDDDDDDD Addendum: 12/11/18 at 0335 by Bryant Cruz RT PATIENT STABLE AND ALERT SP02 98 HR 88. PATIENT DID NOT WANT TO WEAR CPAP AND TOOK OFF THE MASK. PATIENT STATED SHE DID NOT FEEL COMFORTABLE WEARING THE CPAP AND WANTED TO SLEEP WITHOUT THE MACHINE AT THIS
--- NOTE | 2018-12-11 02:50 | NUR ---
Checks made; patient asleep, visible chest rise and fall noted.
[2018-12-11 04:00] VITALS: BP 112/57
--- NOTE | 2018-12-11 04:30 | NUR ---
Vitals take, no distress noted.
[2018-12-11] MEDS: methylPREDNISolone SS 40 MG/ML VIAL IVP SCH ×3 (05:00→21:26)
--- NOTE | 2018-12-11 06:05 | NUR ---
Vitals stable, due meds given. Will endorse to AM shift RN for continuity of care.
--- NOTE | 2018-12-11 07:10 | NUR ---
RECEIVED REPORT FROM RN ASSESSMENT NURSE. PATIENT IS SLEEPING, ON ROOM AIR. NO SIGNS OF RESP DISTRESS. PICC LINE TO RIGHT UPPER ARM. A&O X4. FULL CODE, ALLERGIES TO LEVAQUIN, WILL CONTINUE TO MONITOR
[2018-12-11] MEDS: ALBUTEROL SULFATE/IPRATROPIU 3 ML SOL IH SCH ×3 (07:38→19:41)
[2018-12-11 08:00] VITALS: BP 120/60
[2018-12-11] MEDS: FAMOTIDINE 20 MG TAB PO SCH ×2 (08:08→21:27)
[2018-12-11] MEDS: NICOTINE TRANSD SYS 7 MG/24 HR PATCH TD SCH (08:08)
[2018-12-11] MEDS: LACTOBACILLUS RHAMNOSUS GG 1 EACH CAP PO SCH (08:08)
[2018-12-11] MEDS: DOCUSATE SODIUM 100 MG GELCAP PO SCH ×2 (08:09→21:26)
[2018-12-11] MEDS: MAGNESIUM OXIDE 400 MG TAB PO SCH (08:09)
[2018-12-11] MEDS: BENZONATATE 100 MG CAPLF PO PRN (08:10)
--- NOTE | 2018-12-11 08:15 | NUR ---
ADMINISTERED MORNING MEDICATION TO PATIENT. PATIENT REFUSED HEPARIN AND NICOTINE PATCH.
[2018-12-11] MEDS: ALBUTEROL SULFATE/IPRATROPIU 3 ML SOL IH PRN (09:20)
--- NOTE | 2018-12-11 10:15 | NUR ---
RECIEVED PT AAOX4 , NID 02 SAT 95% , NO COMPLAIN MADE AT THIS TIME , IV SITE, PICC -INTACT AND PATENT , ON O2 AT 2LPM/NC . PLAN OF CARE DISCUSSED AND VERBALIZE UNDERSTANDING ,ON SAFETY / FALL PRECAUTION PROTOCOL -CALL LIGHT WITHIN REACH . WILL CONT. TO MONITOR. Addendum: 12/11/18 at 2302 by Lani Reyes RN THE TIME ENTRY OF THE ABOVE NURSE'S NOTE IS AN ERROR . THE REAL TIME IS 191 INSTEAD OF 1015 - MNURLR.
[2018-12-11 10:19] LABS: HEMATOCRIT 41.1 % (36-48); HEMOGLOBIN 13.5 g/dL (12.0-16.0); MEAN CORPUSCULAR HEMOGLOBIN 30 pg (27-31); MEAN CORPUSCULAR HGB CONC 33 g/dL (33-37); PLATELET COUNT (AUTO) 371 K/uL (140-450); RED BLOOD CELL COUNT(AUTO) 4.51 MIL/uL (4.20-5.40); RED CELL DISTRIBUTION WIDTH 13.6 % (11.6-13.7); WHITE BLOOD COUNT (AUTO) 22.4 K/uL (4.8-10.8)
[2018-12-11 10:30] LABS: ANION GAP 11.3 (8-16); CARBON DIOXIDE 28.3 mmol/L (21-32); CREATININE 0.8 mg/dL (0.6-1.3); POTASSIUM 3.6 mmol/L (3.5-5.1)
[2018-12-11 10:34] LABS: MAGNESIUM 1.4 mg/dL (1.8-2.4); PHOSPHORUS 2.6 mg/dL (2.5-4.9)
[2018-12-11 11:10] LABS: LYMPHOCYTES % (MANUAL) 9 % (20-46); MONOCYTES % (MANUAL) 2 % (5-12)
--- NOTE | 2018-12-11 11:10 | NUR ---
SENT OVER UA TO LAB. PT SITTING UP IN BED. NO COMPLAINTS AT THIS TIME
--- NOTE | 2018-12-11 12:53 | NUR ---
PATIENT IS SITTING UP IN BED. IV ABX INFUSING. NO COMPLAINTS AT THIS TIME.
--- NOTE | 2018-12-11 14:15 | NUR ---
ENDORSED PATIENT TO VENKATA RN FOR CONTINUITY OF CARE.
--- NOTE | 2018-12-11 14:20 | NUR ---
RECEIVED PT FROM KAYLAN FOR CONTINUITY OF CARE. PT IS AWAKE AND ALERT, C/O SOME ITCHING IN HER NECK/CHEST AREA. DR CORRIGAN IS AWARE AND WILL PLACE ORDER FOR BENADRYL. CONTINUOUS O2 MONITORING APPLIED. PT'S CURRENT O2 SAT IS 92%, ON 2.5 L O2 NC.
[2018-12-11 16:00] VITALS: BP 109/50
[2018-12-11] MEDS: MONTELUKAST SODIUM 10 MG TAB PO SCH (16:23)
--- NOTE | 2018-12-11 16:25 | NUR ---
PT C/O ITCHINESS INSIDE OF HER THROAT, CHEST AND EARS. DR CORRIGAN IS AWARE AND WILL ORDER IV BENADRYL
[2018-12-11 18:01] LABS: APPEARANCE,URINE CLEAR (CLEAR); BILIRUBIN,URINE NEGATIVE (NEGATIVE); BLOOD, URINE NEGATIVE (NEGATIVE); COLOR,URINE YELLOW (YELLOW); LEUKOCYTE ESTERASE ,URINE NEGATIVE (NEGATIVE); NITRITE, URINE NEGATIVE (NEGATIVE); UGLUCOSE NEGATIVE (NEGATIVE)
[2018-12-11] MEDS ORDERED: diphenhydrAMINE 50 MG/ML VIAL IVP ONE (18:30)
--- NOTE | 2018-12-11 18:30 | NUR ---
PT EATING DINNER, STILL C/O ITCHINESS IN HER THROAT AREA, IV BENADRYL WAS ADMINISTERED. TONGUE IS NOT SWOLLEN. PT ATE ABOUT 75% OF HER DINNER.
--- NOTE | 2018-12-11 19:15 | NUR ---
PT ENDORSED TO BUSINESS DEVELOPMENT CONSULTANT NURSE IN STABLE CONDITION
--- NOTE | 2018-12-11 19:15 | NUR ---
RECIEVED PT AAOX4, NID , IV SITE , PICC - INTACT AND PATENT , PLAN OF CARE DISCUSSED AND VERBALIZE UNDERSTANDING , ON SAFETY PREACAUTION WILL CONT. TO MONITOR -CALL LIGHT WITHIN REACH.
--- NOTE | 2018-12-11 22:00 | NUR ---
MADE ROUNDS , NO SIGNS OF DISTRESS NOTED AT THIS TIME - CALL LIGHT WITHIN REACH.
[2018-12-11] MEDS: AZITHROMYCIN 500 MG in DEXTROSE 5% 250 ML IV SCH (23:35)
[2018-12-12] VITALS: BP 122/82
--- NOTE | 2018-12-12 | NUR ---
MADE ROUNDS . NO SIGNS OF DISTRESS NOTED - CALL LIGHT WITHIN REACH.
[2018-12-12] MEDS ORDERED: diphenhydrAMINE 50 MG/ML VIAL IVP SCH ×3 (00:15→21:15)
--- NOTE | 2018-12-12 02:00 | NUR ---
MADE ROUNDS , NO DISTRESS NOTED AT THIS TIME, CALL LIGHT WITHIN REACH.
[2018-12-12] MEDS: methylPREDNISolone SS 40 MG/ML VIAL IVP SCH ×3 (05:38→20:41)
--- NOTE | 2018-12-12 07:10 | NUR ---
ENDORSED TO AM SHIFT WITH STABLE CONDITION.
--- NOTE | 2018-12-12 07:10 | NUR ---
RECEIVED BEDSIDE REPORT FROM COUNTY SUPERINTENDENT OF SCHOOLS NURSE ESAU. PT IS ASLEEP, NO S/S OF ACUTE DISTRESS OF SOB. PT IS CURRENTLY ON ROOM AIR. SKIN IS INTACT. RUE PICC LINE IS SALINE LOCKED. CALL LIGHT IS WITHIN REACH.
--- NOTE | 2018-12-12 07:49 | NUR ---
PT STATES SHE WANTS TO SLEEP AT THIS TIME WILL ADMINISTER BREATHING TX AT A LATER TIME. PT NOT IN RESPIRATORY DISTRESS. WILL CONTINUE TO MONITOR.
[2018-12-12 08:00] VITALS: BP 116/70
[2018-12-12] MEDS: NICOTINE TRANSD SYS 7 MG/24 HR PATCH TD SCH (09:00)
[2018-12-12] MEDS: ALBUTEROL SULFATE/IPRATROPIU 3 ML SOL IH SCH ×3 (09:15→20:48)
--- NOTE | 2018-12-12 09:15 | NUR ---
PT ON ROOM AIR SPO2 89% PT PLACED ON 2L NC. WILL CONTINUE TO MONITOR.
[2018-12-12] MEDS: MAGNESIUM OXIDE 400 MG TAB PO SCH (10:10)
[2018-12-12] MEDS: LACTOBACILLUS RHAMNOSUS GG 1 EACH CAP PO SCH (10:10)
[2018-12-12] MEDS: FAMOTIDINE 20 MG TAB PO SCH ×2 (10:11→20:41)
[2018-12-12] MEDS: DOCUSATE SODIUM 100 MG GELCAP PO SCH ×3 (10:11→20:43)
--- NOTE | 2018-12-12 10:50 | NUR ---
ADMINISTERED ORDERED DOSE OF BENADRYL 25 MG IV, DUE TO PT C/O THROAT ITCHINESS STILL.
[2018-12-12 11:30] LABS: HEMATOCRIT 40.8 % (36-48); HEMOGLOBIN 13.6 g/dL (12.0-16.0); LYMPHOCYTES % (AUTO) 5.6 % (20.5-51.1); MEAN CORPUSCULAR HEMOGLOBIN 30 pg (27-31); MEAN CORPUSCULAR HGB CONC 33 g/dL (33-37); MEAN CORPUSCULAR VOLUME 91.1 fL (80-94); MONOCYTES # (AUTO) 0.4 K/uL (0.8-1.0); NEUTROPHILS # (AUTO) 16.9 K/uL (1.8-7.7); NEUTROPHILS % (AUTO) 92.4 % (42.2-75.2); PLATELET COUNT (AUTO) 317 K/uL (140-450); RED BLOOD CELL COUNT(AUTO) 4.48 MIL/uL (4.20-5.40); RED CELL DISTRIBUTION WIDTH 13.7 % (11.6-13.7)
[2018-12-12 11:42] LABS: ANION GAP 10.3 (8-16); CARBON DIOXIDE 29.1 mmol/L (21-32); CREATININE 0.8 mg/dL (0.6-1.3); POTASSIUM 3.4 mmol/L (3.5-5.1)
[2018-12-12 11:45] LABS: MAGNESIUM 1.3 mg/dL (1.8-2.4); PHOSPHORUS 2.5 mg/dL (2.5-4.9)
[2018-12-12 11:50] LABS: WHITE BLOOD COUNT (AUTO) 18.3 K/uL (4.8-10.8)
--- NOTE | 2018-12-12 12:30 | NUR ---
PT REPORTS THAT ITCHINESS IN THE THROAT HAS DECREASED AFTER THIS AM'S DOSE OF IV BENADRYL
--- NOTE | 2018-12-12 12:58 | NUR ---
DR AWAD NOTIFIED OF PT'S MAGNESIUM 1.3 AND POTASSIUM 3.4, AND WILL RELAY THE MESSAGE TO DR. CORRIGAN
[2018-12-12] MEDS ORDERED: MAG SULF 2000 MG/WATER PREMIX 50 ML IV SCH (14:03)
[2018-12-12] MEDS ORDERED: POTASSIUM CHLORIDE 10 MEQ TABER PO SCH (14:04)
--- NOTE | 2018-12-12 15:22 | NUR ---
PT IS AWAKE, NO S/S OF ACUTE DISTRESS, VISITING WITH A RELATIVE AT BEDSIDE.
[2018-12-12 16:00] VITALS: BP 107/65
[2018-12-12] MEDS: MONTELUKAST SODIUM 10 MG TAB PO SCH (17:30)
--- NOTE | 2018-12-12 17:32 | NUR ---
PT SEEN BY DR ORELLANA
--- NOTE | 2018-12-12 18:18 | NUR ---
PT TAKEN OFF THE UNIT FOR CHEST CT SCAN
--- NOTE | 2018-12-12 19:28 | NUR ---
PT ENDORSED TO SURVEY INTERVIEWER NURSE IN STABLE CONDITION
--- NOTE | 2018-12-12 19:29 | NUR ---
RECEIVED BEDSIDE REPORT FROM AM SHIFT. PT IS A, A, O X 4, AMBULATORY MEDSURG PATIENT. NO S/S OF ACUTE DISTRESS OF SOB. PT IS CURRENTLY ON ROOM AIR. SKIN IS INTACT. WITH RUE PICC LINE PATENT AND INTACT, ON SL. CALL LIGHT IS WITHIN REACH. BED IN THE LOWEST POSITION. WITH BIPAP AT BEDSIDE
[2018-12-12 20:00] VITALS: BP 118/69
--- NOTE | 2018-12-12 20:43 | NUR ---
BERLIN REFUSED THE COLACE AND THE HEPARIN SHOT DR. VALENTIN VEGA Addendum: 12/13/18 at 0328 by Peace Zavaleta RN PATIENT STATED SHE HAD A BM WITHIN THE DAY 12/12/18
--- NOTE | 2018-12-12 20:43 | NUR ---
CT CHEST W/O CONTRAST CAME OUT WILL INFORM DR. HANSON. PATIENT WANTS TO KNOW THE RESULT TOO
--- NOTE | 2018-12-12 20:59 | NUR ---
INFORMED DR. HANSON OF THE CT CHEST RESULT ; PATIENT WANTS TO BE EXPLAINED
--- NOTE | 2018-12-12 20:59 | NUR ---
RECEIVED PATIENT ON ROOM AIR, PULSE OX SAT 94%. SCHEDULED BREATHING TREATMENT ADMINISTERED. TOLERATED TX WELL WITHOUT ADVERSE SIDE EFFECTS. NO ACUTE RESPIRATORY DISTRESS NOTED. WILL CONTINUE TO MONITOR.
--- NOTE | 2018-12-12 21:00 | NUR ---
PT C/O 10/30 PAIN ON LEFT CHEST AND ALSO C/O ITCHINESS ALL OVER BODY. WILL INFORM DR Addendum: 12/13/18 at 0101 by Peace Zavaleta RN C/O ITCHINESS IN THE THROAT; NOT BODY
--- NOTE | 2018-12-12 21:17 | NUR ---
PT AMBULATORY, ABLE TO GO TO BATHROOM ON HER OWN W/ STEADY GAIT. HEPARIN QQ NOT GIVEN PT REFUSED. DR. HANSON AWARE.
[2018-12-12] MEDS: KETOROLAC 30 MG/ML VIAL IVP PRN (22:14)
[2018-12-12] MEDS: AZITHROMYCIN 500 MG in DEXTROSE 5% 250 ML IV SCH (22:19)
--- NOTE | 2018-12-12 22:56 | NUR ---
PT C/O OF UNABLE TO COUGH, MUCUS STUCK IN HER THROAT, WILL GIVE TESSALON PERRLE
[2018-12-12] MEDS: BENZONATATE 100 MG CAPLF PO PRN (22:58)
--- NOTE | 2018-12-13 04:00 | NUR ---
PT REFUSED VITAL SIGNS, ONLY TOOK HER O2 SAT.ON RA 94%
--- NOTE | 2018-12-13 06:14 | NUR ---
PT STILL SLEEPING NOT IN RESPIRATORY DISTRESS, NOT IN PAIN. PT IN STABLE CONDITION
--- NOTE | 2018-12-13 07:20 | NUR ---
RECEIVED BEDSIDE REPORT FROM COTTON BROKER NURSE FOR CONTINUITY OF CARE. PATIENT IS AOX4 TO,ABLE TO FOLLOW COMMAND AND MAKE NEEDS KNOWN. PATIENT IS RESTING ON BED QUIETLY AT THIS TIME. AROUSABLE TO VOICE. RESPIRATION EVEN AND UNLABORED ON RA. NO SIGNS OF DISTRESS NOTED. RUE PICC LINE, CLEAN AND DRY, SL. PATIENT IS ABLE TO AMBULATE WITH STANDBY ASSIST AND CONTINENT. SAFETY MEASURES IN PLACE. BED IN LOW POSITION AND CALL LIGHT WITHIN REACH. INSTRUCTED PATIENT TO USE THE CALL LIGHT FOR ANY ASSISTANCE AND PATIENT WAS AWARE.
--- NOTE | 2018-12-13 07:48 | NUR ---
PATIENT REFUSED [facility] THERAPY AND RESPIRATORY DRUG AT THIS TIME "WANTS TO SLEEP" WILL ACCEPT AFTER BREAKFAST CRECHE ATTENDANT TO ATTEMPT AT A LATER TIME
--- NOTE | 2018-12-13 07:50 | NUR ---
PATIENT REFUSED TO TAKE VITAL SIGNS AND SAID " THEY JUST DID IT NOT TOO LONG AGO. I WANT TO REST AND STOP WAKING ME UP. MAYBE COME BACK AROUND 9 O'CLOCK." PATIENT WENT BACK TO SLEEP AND USE PILLOW TO COVER HER HEAD. NO SIGNS OF DISTRESS NOTED. SAFETY MEASURES IN PLACE. BED IN LOW POSITION AND CALL LIGHT WITHIN REACH. INSTRUCTED PATIENT TO USE THE CALL LIGHT FOR ANY ASSISTANCE AND PATIENT SAID " I WILL."
[2018-12-13 08:00] VITALS: BP 126/70
[2018-12-13] MEDS: NICOTINE TRANSD SYS 7 MG/24 HR PATCH TD SCH (09:00)
[2018-12-13] MEDS: ALBUTEROL SULFATE/IPRATROPIU 3 ML SOL IH SCH ×3 (09:06→19:55)
[2018-12-13] MEDS: DOCUSATE SODIUM 100 MG GELCAP PO SCH ×2 (09:31→21:26)
[2018-12-13] MEDS: MAGNESIUM OXIDE 400 MG TAB PO SCH (09:32)
[2018-12-13] MEDS: LACTOBACILLUS RHAMNOSUS GG 1 EACH CAP PO SCH (09:32)
[2018-12-13] MEDS: FAMOTIDINE 20 MG TAB PO SCH ×2 (09:32→21:26)
--- NOTE | 2018-12-13 09:38 | NUR ---
ADMINISTERED MEDS PER MD ORDER, PATIENT REFUSED HEPARIN AND NICOTINE PATCH. PATIENT STATED "I WALK A LOT AND I QUITE SMOKING, SO I DON'T NEED THOSE MEDS." MEDS EDUCATION PROVIDED TO PATIENT AND PATIENT SAID OK. PATIENT AWAKE AND LOOKING AT HER PHONE AT THIS TIME. DENIED PAIN, SOB, AND DIZZINESS. NO SIGNS OF DISTRESS NOTED. SAFETY MEASURES IN PLACE. BED IN LOW POSITION AND CALL LIGHT WITHIN REACH. INSTRUCTED PATIENT TO USE THE CALL LIGHT FOR ANY ASSISTANCE AND PATIENT WAS AWARE.
[2018-12-13] MEDS ORDERED: methylPREDNISolone SS 40 MG/ML VIAL IVP SCH (10:00)
[2018-12-13 10:23] LABS: HEMATOCRIT 40.9 % (36-48); HEMOGLOBIN 13.4 g/dL (12.0-16.0); MEAN CORPUSCULAR HEMOGLOBIN 30 pg (27-31); MEAN CORPUSCULAR HGB CONC 33 g/dL (33-37); PLATELET COUNT (AUTO) 314 K/uL (140-450); RED BLOOD CELL COUNT(AUTO) 4.49 MIL/uL (4.20-5.40); RED CELL DISTRIBUTION WIDTH 13.2 % (11.6-13.7); WHITE BLOOD COUNT (AUTO) 19.2 K/uL (4.8-10.8)
[2018-12-13 10:50] LABS: ANION GAP 10.9 (8-16); CARBON DIOXIDE 29.8 mmol/L (21-32); CREATININE 0.8 mg/dL (0.6-1.3); POTASSIUM 3.7 mmol/L (3.5-5.1)
[2018-12-13 11:10] LABS: LYMPHOCYTES % (MANUAL) 13 % (20-46); MONOCYTES % (MANUAL) 3 % (5-12)
--- NOTE | 2018-12-13 11:13 | NUR ---
ADMINISTERED MED PER MD ORDER, PATIENT TOLERATED WELL. MED EDUCATION PROVIDED TO PATIENT AND PATIENT VERBALIZED UNDERSTANDING. PATIENT AWAKE AND WATCHING TV ON BED. PATIENT PUT ON NASAL CANNULA AT 3LMP. NO SIGNS OF DISTRESS NOTED. SAFETY MEASURES IN PLACE. BED IN LOW POSITION AND CALL LIGHT WITHIN REACH. INSTRUCTED PATIENT TO USE THE CALL LIGHT FOR ANY ASSISTANCE AND PATIENT VERBALIZED OK.
[2018-12-13 11:23] LABS: MAGNESIUM 1.7 mg/dL (1.8-2.4); PHOSPHORUS 3.3 mg/dL (2.5-4.9)
[2018-12-13] MEDS ORDERED: MAG SULF 2000 MG/WATER PREMIX 50 ML IV SCH (12:00)
--- NOTE | 2018-12-13 12:31 | NUR ---
ADMINISTERED MED PER MD ORDER, PATIENT TOLERATED WELL. MED EDUCATION PROVIDED TO PATIENT AND PATIENT VERBALIZED UNDERSTANDING. PATIENT AWAKE AND EATING LUNCH AT THIS TIME. NO SIGNS OF DISTRESS NOTED. SAFETY MEASURES IN PLACE. BED IN LOW POSITION AND CALL LIGHT WITHIN REACH. INSTRUCTED PATIENT TO USE THE CALL LIGHT FOR ANY ASSISTANCE AND PATIENT VERBALIZED OK.
--- NOTE | 2018-12-13 13:05 | NUR ---
PATIENT AWAKE AND RESTING ON BED AT THIS TIME. DENIED PAIN, SOB, AND DIZZINESS. NO SIGNS OF DISTRESS NOTED. SAFETY MEASURES IN PLACE. BED IN LOW POSITION AND CALL LIGHT WITHIN REACH. INSTRUCTED PATIENT TO USE THE CALL LIGHT FOR ANY ASSISTANCE AND PATIENT WAS AWARE.
--- NOTE | 2018-12-13 13:35 | NUR ---
PATIENT AWAKE AND WATCHING ON BED AT THIS TIME. DENIED PAIN, SOB, AND DIZZINESS. NO SIGNS OF DISTRESS NOTED. SAFETY MEASURES IN PLACE. BED IN LOW POSITION AND CALL LIGHT WITHIN REACH. INSTRUCTED PATIENT TO USE THE CALL LIGHT FOR ANY ASSISTANCE AND PATIENT WAS AWARE.
[2018-12-13] MEDS ORDERED: diphenhydrAMINE 50 MG/ML VIAL IVP SCH ×2 (14:00→21:30)
--- NOTE | 2018-12-13 14:18 | NUR ---
PATIENT COMPLAINED SHE FEELS ITCHINESS OVER HER NECK AND SHOULDERS AREA, ADMINISTERED BENADRYL PER MD ORDER VIA IVP, PATIENT TOLERATED WELL. PATIENT AWAKE AND LOOKING AT HER PHONE. DENIED PAIN, SOB AND DIZZINESS. NO SIGNS OF DISTRESS NOTED. SAFETY MEASURES IN PLACE. BED IN LOW POSITION AND CALL LIGHT WITHIN REACH. INSTRUCTED PATIENT TO USE THE CALL LIGHT FOR ANY ASSISTANCE AND PATIENT WAS AWARE.
[2018-12-13] MEDS: KETOROLAC 30 MG/ML VIAL IVP PRN ×2 (14:51→21:27)
--- NOTE | 2018-12-13 14:51 | NUR ---
PATIENT COMPLAINED SHE HAS 7/10 PAIN AROUND HER CHEST AREA, ADMINISTERED PRN PAIN MED TORADOL VIA IVP PER MD ORDER, PATIENT TOLERATED WELL. PATIENT AWAKE AND WATCHING TV ON BED AT THIS TIME. RESPIRATION EVEN AND UNLABORED ON RA. PATIENT SAID " I DONT NEED THE O2 RIGHT. WHEN I NEED IT, I WILL PUT IT ON." SAFETY MEASURES IN PLACE. BED IN LOW POSITION AND CALL LIGHT WITHIN REACH. INSTRUCTED PATIENT TO USE THE CALL LIGHT FOR ANY ASSISTANCE AND PATIENT WAS AWARE.
--- NOTE | 2018-12-13 15:58 | NUR ---
PATIENT AWAKE AND PLAYING ON PHONE AT THIS TIME. DENIED PAIN, SOB, AND DIZZINESS. NO SIGNS OF DISTRESS NOTED. SAFETY MEASURES IN PLACE. BED IN LOW POSITION AND CALL LIGHT WITHIN REACH. INSTRUCTED PATIENT TO USE THE CALL LIGHT FOR ANY ASSISTANCE AND PATIENT WAS AWARE.
[2018-12-13 16:00] VITALS: BP 127/70
--- NOTE | 2018-12-13 16:30 | NUR ---
PATIENT STATED " THE DINNER DOESN'T EVEN MAKE ME FULL, I NEED A CHICKEN SANDWICH." PROVIDED PATIENT WITH A CHICKEN SANDWICH. PATIENT IS TALKING ON HER PHONE. NO SIGNS OF DISTRESS NOTED. SAFETY MEASURES IN PLACE. BED IN LOW POSITION AND CALL LIGHT WITHIN REACH. INSTRUCTED PATIENT TO USE THE CALL LIGHT FOR ANY ASSISTANCE AND PATIENT WAS AWARE.
[2018-12-13] MEDS: MONTELUKAST SODIUM 10 MG TAB PO SCH (17:12)
--- NOTE | 2018-12-13 17:12 | NUR ---
ADMINISTERED MED PER MD ORDER, PATIENT TOLERATED WELL. MED EDUCATION PROVIDED TO PATIENT AND PATIENT VERBALIZED UNDERSTANDING. PATIENT IS RESTING ON BED AT THIS TIME. DENIED PAIN, SOB, AND DIZZINESS. RESPIRATION EVEN AND UNLABORED ON RA. NO SIGNS OF DISTRESS NOTED. SAFETY MEASURES IN PLACE. BED IN LOW POSITION AND CALL LIGHT WITHIN REACH. INSTRUCTED PATIENT TO USE THE CALL LIGHT FOR ANY ASSISTANCE AND PATIENT WAS AWARE.
--- NOTE | 2018-12-13 18:45 | NUR ---
PATIENT REQUESTED TO TAKE A SHOWER. NOTIFIED DR MIDDLETON, PER DR, IT'S OK FOR PATIENT TO TAKE A SHOWER. WRAPPED AROUND PICC LINE WITH BANDAGE TO PROTECT FROM GETTING WET. SUPERVISOR FILTRATION WILL PROVIDE PATIENT WITH SHOWER SUPPLIES. PATIENT IS SITTING UP ON BED AND EATING CHICKEN SANDWICH AT THIS TIME. NO SIGNS OF DISTRESS NOTED. SAFETY MEASURES IN PLACE. BED IN LOW POSITION AND CALL LIGHT WITHIN REACH. INSTRUCTED PATIENT TO USE THE CALL LIGHT FOR ANY ASSISTANCE AND PATIENT WAS AWARE.
--- NOTE | 2018-12-13 19:16 | NUR ---
ENDORSED PATIENT AT BEDSIDE TO GASTROENTEROLOGY PROFESSOR NURSE FOR CONTINUITY OF CARE. PATIENT AWAKE AND TALKING ON THE PHONE AT THIS TIME. NO SIGNS OF DISTRESS NOTED. PATIENT IS IN STABLE CONDITION. SAFETY MEASURES IN PLACE. BED IN LOW POSITION AND CALL LIGHT WITHIN REACH.
--- NOTE | 2018-12-13 19:17 | NUR ---
RECEIVED BEDSIDE REPORT FROM DAY SHIFT NURSE FOR CONTINUITY OF CARE. PATIENT IS AOX4 TO,ABLE TO FOLLOW COMMAND AND MAKE NEEDS KNOWN. PATIENT IS LYING IN BED, WAITING FOR SHOWER. RESPIRATION EVEN AND UNLABORED ON RA. NO SIGNS OF DISTRESS NOTED. RUE PICC LINE, CLEAN AND DRY, SL, COVERED WITH PLASTIC BAG FOR SHOWER. PATIENT IS ABLE TO AMBULATE WITH STANDBY ASSIST AND CONTINENT. SAFETY MEASURES IN PLACE. BED IN LOW POSITION AND CALL LIGHT WITHIN REACH.
--- NOTE | 2018-12-13 20:05 | NUR ---
RECEIVED PATIENT ON ROOM AIR, PULSE OX SAT 95%. SCHEDULED BREATHING TREATMENT ADMINISTERED. TOLERATED TX WELL WITHOUT ADVERSE SIDE EFFECTS. NO ACUTE RESPIRATORY DISTRESS NOTED AT THIS TIME. WILL CONTINUE TO MONITOR.
--- NOTE | 2018-12-13 20:45 | NUR ---
PT TAKING A SHOWER.
--- NOTE | 2018-12-13 21:16 | NUR ---
PT CAME BACK FROM SHOWER. GIVEN SOLU-MEDROL, COLACE, PEPCID, ZITHROMAX MD ORDERED. PT REFUSED TO TAKE HEPARIN D/T PT ABLE TO AMBULATE. EXPLAINED BENEFIT AND RISK, PT STILL REFUSED. PT C/O ITCHY, NOTIFIED TO AND GIVEN BENADRYL MD ORDERED. PT ALSO C/O PAIN 09/29, GIVEN TORADOL MD ORDERED. PT TOLERATE WELL. WILL CONTINUE TO MONITOR.
[2018-12-13] MEDS: methylPREDNISolone SS 40 MG/ML VIAL IVP SCH (21:26)
[2018-12-13] MEDS: AZITHROMYCIN 500 MG in DEXTROSE 5% 250 ML IV SCH (21:27)
--- NOTE | 2018-12-13 23:50 | NUR ---
VS CHECKED, WITHIN NORMAL RANGE. WILL CONTINUE TO MONITOR.
[2018-12-14] VITALS: BP 123/69
--- NOTE | 2018-12-14 02:30 | NUR ---
PT SLEEPING IN BED. NO ACUTE DISTRESS NOTED. WILL CONTINUE TO MONITOR.
--- NOTE | 2018-12-14 05:46 | NUR ---
PT SLEEPING IN BED. NO ACUTE DISTRESS NOTED. WILL CONTINUE TO MONITOR.
[2018-12-14] MEDS: KETOROLAC 30 MG/ML VIAL IVP PRN ×2 (06:16→13:29)
--- NOTE | 2018-12-14 06:16 | NUR ---
PT C/O 09/29 PAIN, ADMINISTERED TORADOL MD ORDERED. PT TOLERATED WELL. WILL CONTINUE TO MONITOR.
[2018-12-14] MEDS ORDERED: MAG SULF 2000 MG/WATER PREMIX 50 ML IV SCH (06:30)
--- NOTE | 2018-12-14 07:17 | NUR ---
RECEIVED BEDSIDE REPORT FROM TAKE AWAY WORKER NURSE FOR CONTINUITY OF CARE. PATIENT IS AOX4 TO,ABLE TO FOLLOW COMMAND AND MAKE NEEDS KNOWN. PATIENT IS RESTING ON BED QUIETLY AT THIS TIME. AROUSABLE TO VOICE. RESPIRATION EVEN AND UNLABORED ON RA. NO SIGNS OF DISTRESS NOTED. PICC LINE DOUBLE LUMEN ON JUAN CARLOS, CLEAN AND PATENT, SL. SKIN CLEAN AND DRY. PATIENT IS ABLE TO AMBULATE AND CONTINENT. SAFETY MEASURES IN PLACE. BED IN LOW POSITION AND CALL LIGHT WITHIN REACH. INSTRUCTED PATIENT TO USE THE CALL LIGHT FOR ANY ASSISTANCE AND PATIENT WAS AWARE.
--- NOTE | 2018-12-14 07:25 | NUR ---
PATIENT REFUSED AM LAB AND SAID " COME BACK LATER IN THE DAY. I AM STILL SLEEPING. I DON'T WANT TO DO IT NOW." NOTIFIED SENIOR SYSTEMS ADMINISTRATOR TO COME BACK IN MID MORNING FOR AM LAB.
[2018-12-14] MEDS: ALBUTEROL SULFATE/IPRATROPIU 3 ML SOL IH SCH ×2 (07:34→12:00)
[2018-12-14 08:00] VITALS: BP 116/68
--- NOTE | 2018-12-14 08:50 | NUR ---
PATIENT COMPLAINED THAT SHE FEELS ITCHINESS AROUND HER UPPER BODY. NOTIFIED DR RAMIREZ AND PER DR RAMIREZ THAT SHE WILL INPUT AN ORDER FOR BENADRYL.
[2018-12-14] MEDS: NICOTINE TRANSD SYS 7 MG/24 HR PATCH TD SCH (09:00)
[2018-12-14] MEDS: MAGNESIUM OXIDE 400 MG TAB PO SCH (09:35)
[2018-12-14] MEDS: LACTOBACILLUS RHAMNOSUS GG 1 EACH CAP PO SCH (09:36)
[2018-12-14] MEDS: FAMOTIDINE 20 MG TAB PO SCH (09:36)
[2018-12-14] MEDS: methylPREDNISolone SS 40 MG/ML VIAL IVP SCH (09:36)
[2018-12-14] MEDS: DOCUSATE SODIUM 100 MG GELCAP PO SCH (09:37)
--- NOTE | 2018-12-14 09:37 | NUR ---
ADMINISTERED MEDS PER MD ORDER, PATIENT TOLERATED WELL. PATIENT REFUSED HEPARIN AND NICOTINE PATCH AND STATED " I DON'T NEED THOSE."MEDS EDUCATION PROVIDED TO PATIENT AND PATIENT VERBALIZED UNDERSTANDING. PATIENT AWAKE AND LOOKING ON HER PHONE AT THIS TIME. NO SIGNS OF DISTRESS NOTED. INFORMED PATIENT THAT DR HAS ORDER TO REMOVE PICC LINE AND PICC LINE WILL BE REMOVE AFTER 1100 SCHEDULE ANTIBIOTIC AND PATIENT SAID OK. SAFETY MEASURES IN PLACE. BED IN LOW POSITION AND CALL LIGHT WITHIN REACH. INSTRUCTED PATIENT TO USE THE CALL LIGHT FOR ANY ASSISTANCE AND PATIENT SAID OK.
--- NOTE | 2018-12-14 09:42 | NUR ---
DR WILLIS IS TALKING TO PATIENT AT BEDSIDE. NO SIGNS OF DISTRESS NOTED.
[2018-12-14] MEDS ORDERED: diphenhydrAMINE 50 MG/ML VIAL IVP SCH (09:45)
[2018-12-14] MEDS ORDERED: AMOX-1000 PO (10:55)
[2018-12-14] MEDS ORDERED: LACT10CA1 PO (10:55)
[2018-12-14] MEDS ORDERED: METH4TAB3 PO (10:55)
[2018-12-14 11:06] LABS: BASOPHILS % (AUTO) 0.1 % (0.0-2.0); EOSINOPHILS % (AUTO) 0.2 % (0.0-4.0); HEMATOCRIT 40.3 % (36-48); HEMOGLOBIN 13.1 g/dL (12.0-16.0); LYMPHOCYTES # (AUTO) 2.9 K/uL (2.5-16.5); LYMPHOCYTES % (AUTO) 16.1 % (20.5-51.1); MEAN CORPUSCULAR HEMOGLOBIN 30 pg (27-31); MEAN CORPUSCULAR HGB CONC 33 g/dL (33-37); MEAN CORPUSCULAR VOLUME 91.9 fL (80-94); MONOCYTES # (AUTO) 0.9 K/uL (0.8-1.0); MONOCYTES % (AUTO) 5.2 % (1.7-9.3); NEUTROPHILS % (AUTO) 78.4 % (42.2-75.2); PLATELET COUNT (AUTO) 304 K/uL (140-450); RED BLOOD CELL COUNT(AUTO) 4.38 MIL/uL (4.20-5.40); RED CELL DISTRIBUTION WIDTH 13.6 % (11.6-13.7); WHITE BLOOD COUNT (AUTO) 17.9 K/uL (4.8-10.8)
--- NOTE | 2018-12-14 11:19 | NUR ---
ADMINISTERED ANTIBIOTIC ROCEPHIN PER MD ORDER, PATIENT TOLERATED WELL. MED EDUCATION PROVIDED TO PATIENT AND PATIENT VERBALIZED UNDERSTANDING. PATIENT STATED " HOPEFULLY MY BROTHER WILL BE PICKING ME UP AROUND 2PM -3PM TODAY. I WILL LET YOU KNOW WHEN HE IS COMING." PATIENT IS RESTING ON BED COMFORTABLY.PATIENT DENIED PAIN, SOB AND DIZZINESS. NO SIGNS OF DISTRESS NOTED. SAFETY MEASURES IN PLACE. BED IN LOW POSITION AND CALL LIGHT WITHIN REACH. INSTRUCTED PATIENT TO USE THE CALL LIGHT FOR ANY ASSISTANCE AND PATIENT WAS AWARE.
[2018-12-14 11:25] LABS: ANION GAP 12.4 (8-16); CARBON DIOXIDE 28.3 mmol/L (21-32); CREATININE 0.9 mg/dL (0.6-1.3); POTASSIUM 3.7 mmol/L (3.5-5.1)
[2018-12-14 11:29] LABS: MAGNESIUM 1.6 mg/dL (1.8-2.4); PHOSPHORUS 3.6 mg/dL (2.5-4.9)
[2018-12-14] MEDS ORDERED: MAGNESIUM OXIDE 400 MG TAB PO SCH (13:00)
--- NOTE | 2018-12-14 13:23 | NUR ---
ADMINISTERED MAG-OXI PER MD ORDER FOR AM LAB MAG 1.6L, PATIENT TOLERATED WELL. MED EDUCATION PROVIDED TO PATIENT AND PATIENT VERBALIZED UNDERSTANDING. PATIENT AWAKE AND WATCHING TV ON BED AT THIS TIME. NO SIGNS OF DISTRESS NOTED. SAFETY MEASURES IN PLACE. BED IN LOW POSITION AND CALL LIGHT WITHIN REACH. INSTRUCTED PATIENT TO USE THE CALL LIGHT FOR ANY ASSISTANCE AND PATIENT WAS AWARE.
--- NOTE | 2018-12-14 13:29 | NUR ---
PATIENT COMPLAINED SHE HAS 8/10 PAIN ON HER LOWER BACK. PATIENT IS MOANING AND KEEP ON RUBBING HER BACK. ADMINISTERED PRN PAIN MED TORADOL VIA IVP PER MD ORDER, PATIENT TOLERATED WELL. PATIENT AWAKE AND RESTING ON BED AT THIS TIME. SAFETY MEASURES IN PLACE. BED IN LOW POSITION AND CALL LIGHT WITHIN REACH. INSTRUCTED PATIENT TO USE THE CALL LIGHT FOR ANY ASSISTANCE AND PATIENT WAS AWARE.
--- NOTE | 2018-12-14 14:27 | NUR ---
PATIENT IS AWAKE AND RESTING ON BED AT THIS TIME. DENIED PAIN, SOB, AND DIZZINESS. NO SIGNS OF DISTRESS NOTED. AWAITING FOR RIDE FOR DISCHARGE. SAFETY MEASURES IN PLACE. BED IN LOW POSITION AND CALL LIGHT WITHIN REACH. INSTRUCTED PATIENT TO USE THE CALL LIGHT FOR ANY ASSISTANCE AND PATIENT WAS AWARE.
--- NOTE | 2018-12-14 14:30 | NUR ---
REMOVED PICC LINE, INTACT AND COMPLETED. NO BLEEDING AT INSERT SITE. PATIENT TOLERATED WELL. PATIENT IS GETTING A BREATHING TREATMENT AT THIS TIME. NO SIGNS OF DISTRESS NOTED. SAFETY MEASURES IN PLACE. BED IN LOW POSITION AND CALL LIGHT WITHIN REACH.
[2018-12-14] MEDS: ALBUTEROL SULFATE/IPRATROPIU 3 ML SOL IH PRN (14:34)
--- NOTE | 2018-12-14 14:45 | NUR ---
DISCHARGE INSTRUCTION PROVIDED TO PATIENT AT BEDSIDE. EDUCATED PATIENT ON MD FOLLOW UP, SEEK MEDICAL HELP IN CASE OF MEDICAL EMERGENCY, MEDICATION REGIMEN, SIDE EFFECTS, AND DIET REGIMEN. ANSWERED ALL PATIENT'S QUESTIONS AND PATIENT VERBALIZED UNDERSTANDING. PATIENT CHECKED ALL THE CABINETS AND TOOK ALL HER BELONGING. PATIENT CHANGED INTO HER OWN CLOTHES. REMOVED ALL ARM BANDS. CASH CHECKER ESCORTED PATIENT WITH WHEELCHAIR TO THE FRONT LOBBY. PATIENT IS GOING TO DISCHARGE HOME ACCOMPANY BY HER BROTHER. PATIENT IS IN STABLE CONDITION.
[2018-12-14] MEDS ORDERED: AZITHROMYCIN 500 MG in DEXTROSE 5% 250 ML IV SCH (22:00)
== END 2018-12-14 14:45 | disposition home or self-care (01) | DRG 720 ==
LOC: MED 20:58 → MTU 22:19
PROVIDERS: ADMIT General Practice; ATTEND General Practice
PROC: 5A09357 Assistance with Respiratory Ventilation, Less than 24 Consecutive Hours, Continuous Positive Airway Pressure (ICD-10-PCS; 2018-12-09)
PROC: 02HV33Z Insertion of Infusion Device into Superior Vena Cava, Percutaneous Approach (ICD-10-PCS; principal; 2018-12-10)
PROC: B548ZZA Ultrasonography of Superior Vena Cava, Guidance (ICD-10-PCS; 2018-12-10)
DX: A41.9 Sepsis, unspecified organism (principal); J96.01 Acute respiratory failure with hypoxia; J44.1 Chronic obstructive pulmonary disease with (acute) exacerbation; E66.01 Morbid (severe) obesity due to excess calories; Z68.37 Body mass index [BMI] 37.0-37.9, adult; F19.10 Other psychoactive substance abuse, uncomplicated; I16.0 Hypertensive urgency; R65.20 Severe sepsis without septic shock; E87.6 Hypokalemia; T38.0X5A Adverse effect of glucocorticoids and synthetic analogues, initial encounter; J98.11 Atelectasis; E83.42 Hypomagnesemia; Z88.1 Allergy status to other antibiotic agents; I10 Essential (primary) hypertension; Z87.891 Personal history of nicotine dependence; Z98.51 Tubal ligation status; Z83.3 Family history of diabetes mellitus; Z80.1 Family history of malignant neoplasm of trachea, bronchus and lung; Z80.59 Family history of malignant neoplasm of other urinary tract organ; Z82.49 Family history of ischemic heart disease and other diseases of the circulatory system; Z71.6 Tobacco abuse counseling; Y92.89 Other specified places as the place of occurrence of the external cause
CPT/HCPCS: 36415; 71045; 71250; 76604; 80048; 80053; 81003; 81025; 82150; 82550; 82553; 83036; 83605; 83690; 83735; 83880; 84100; 84439; 84443; 84484; 85025; 87040; 87081; 87804; 93005; 94640; 94660; 96374; 99285; C1751; J0456; J0696; J1200; J1644; J1885; J2920; J2930; J3475; J7030; J7060; J7613; J7620; Q0092; Q0163